=== PATIENT | female | born 1975 | race Caucasian/White ===

== ENCOUNTER 2018-04-09 05:41 | Day surgery (SDC) | payer OTHER ==
[~2018-04-09 05:41] MED LIST: ACETAMINOOPHEN-1 TAB PO; ADVIL200 MG PO; CIPRO500 MG PO
[2018-04-09] MEDS ORDERED: NAPROXEN375 M1 PO (10:08)
[2018-04-09] MEDS ORDERED: COLACE100 MG PO (10:13)
== END 2018-04-09 15:20 | disposition home or self-care (01) ==
LOC: CIR.AMB 05:41
DX: N83.02 Follicular cyst of left ovary (principal); N83.12 Corpus luteum cyst of left ovary; N83.292 Other ovarian cyst, left side; N83.11 Corpus luteum cyst of right ovary